=== PATIENT | male | born 2000 | race Caucasian/White ===

== ENCOUNTER 2020-12-25 19:18 | Emergency (ER) | payer OTHER ==
[~2020-12-25] VITALS: Ht 180.3 cm; Wt 128.5 kg
[2020-12-25 20:01] LABS: BASOPHILS % (AUTO) 0 % (0-1); EOSINOPHILS % (AUTO) 2 % (1-7); LYMPHOCYTES % (AUTO) 30 % (22-44); MEAN CORPUSCULAR HEMOGLOBIN 30.6 pg (27.5-34.5); MEAN CORPUSCULAR HGB CONC 34.8 g/dL (33.2-36.2); MEAN PLATELET VOLUME 8.4 fL (7.4-10.4); MONOCYTES % (AUTO) 10 % (2-9); NEUTROPHILS % (AUTO) 58 % (42-75); PLATELET COUNT 289 x10^3/uL (130-400); RED CELL DISTRIBUTION WIDTH 12.6 % (9.4-14.8)
[2020-12-25 20:12] LABS: ALBUMIN 4.3 g/dL (3.4-5.0); ANION GAP 3 mmol/L (5-15); CHLORIDE 107 mmol/L (98-107); CREATININE 1.01 mg/dL (0.7-1.3)
--- NOTE | 2020-12-25 21:19 | NUR ---
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
--- NOTE | 2020-12-25 21:36 | NUR ---
PT. TO ED WITH C/O SUDDEN ONSET OF PALPITAIONS AND CP AFTER SMOKING MARIJUANA TONIGHT. PT. STATES "IT WOULDN'T GO UNDER 100 AND MY CHEST WAS HURTING". PT. REPORTS FEELING BETTER AT THIS TIME. 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 PT. SKIN PWD. DENIES CARDIAC HX. ALL MONITORS PLACED.
[2020-12-25 22:30] VITALS: BP 154/91
== END 2020-12-25 22:32 | disposition home or self-care (01) ==
LOC: ED 21:46
DX: R00.2 Palpitations (principal); F41.1 Generalized anxiety disorder
CPT/HCPCS: 36415; 71046; 80048; 82040; 84443; 85025; 93005; 99285